=== PATIENT | male | born 1990 | race Two or more races ===

== ENCOUNTER 2022-01-20 08:08 | Emergency (ER) | payer SELFPAY ==
[~2022-01-20] VITALS: Ht 167.6 cm; Wt 79.4 kg
--- NOTE | 2022-01-20 08:20 | NUR ---
TO ER BED 11,CHANGE INTO [facility],AWAITING MD HERNÁNDEZ
--- NOTE | 2022-01-20 08:42 | NUR ---
DR. HERMOSILLO AT BEDSIDE
[2022-01-20] MEDS ORDERED: LORAZEPAM 0.5 MG TABLET ONE (08:48)
[2022-01-20] MEDS ORDERED: CYCLOBENZAPRINE 10 MG TABLET ONE (08:48)
[2022-01-20] MEDS ORDERED: IBUPROFEN 400 MG TABLET ONE (08:49)
--- NOTE | 2022-01-20 08:52 | NUR ---
PT REFUSED TO TAKE PRESCRIBED MEDICATIONS AT THIS TIME. PER PT, HE FEELS OKAY AT THE MOMENT. OFFERED WATER BUT PATIENT ALREADY HAS BOTTLED WATER AT BEDSIDE.
[2022-01-20] MEDS ORDERED: IBUPROFEN 400 MG TABLET PO ONE (09:00)
[2022-01-20] MEDS ORDERED: LORAZEPAM 1 MG TABLET PO ONE (09:00)
[2022-01-20] MEDS ORDERED: CYCLOBENZAPRINE 10 MG TABLET PO ONE (09:00)
[2022-01-20 09:57] VITALS: BP 124/76
[2022-01-20] MEDS ORDERED: CYCL5TAB PO (09:59)
--- NOTE | 2022-01-20 10:18 | NUR ---
Patient discharged to home in stable condition. Written and verbal after care instructions given. Patient verbalizes understanding of instruction.
== END 2022-01-20 10:19 | disposition home or self-care (01) ==
LOC: ER 08:14
DX: S29.011A Strain of muscle and tendon of front wall of thorax, initial encounter (principal); X50.0XXA Overexertion from strenuous movement or load, initial encounter; Y93.89 Activity, other specified; Y92.89 Other specified places as the place of occurrence of the external cause; Y99.8 Other external cause status
CPT/HCPCS: 71045-TC